=== PATIENT | female | born 1970 | race Caucasian/White ===

== ENCOUNTER → 2018-05-23 10:14 | Outpatient (CLI) | payer OTHER, SELFPAY ==
[2018-05-23 11:39] LABS: Add Manual Diff / Slide Review NO; Basophils Percent Auto 0.5 % (0-2); Eosinophils Percent Auto 3.4 % (2-4); Hematocrit 47.8 % (36-46); Hemoglobin 16.3 g/dL (12.0-16.0); Lymphocytes Percent Auto 22.3 % (25-40); Mean Corpuscular HGB Conc 34.1 % (30-36); Mean Corpuscular Hemoglobin 32.1 PG (26-34); Monocytes Percent Auto 7.3 % (3-14); Neutrophils Absolute Auto 4700 /uL (3000-5900); Neutrophils Percent Auto 66.5 % (50-75); Platelet Count 292 X10^3/uL (150-400); Red Blood Cell Count 5.08 X10^6/uL (4.0-5.2); Red Cell Distribution Width 14.4 % (11.6-14.8); White Blood Cell Count 7.1 X10^3/uL (4.5-11.0)
[2018-05-23 11:41] LABS: HEMOLYSIS < 15 (0-50); Iron 48 ug/dL (37-170)
[2018-05-23 11:44] LABS: Alanine Aminotransferase 63 IU/L (9-52); Albumin 4.1 g/dL (3.5-5.0); Albumin Globulin Ratio 1.2 (1.0-2.8); Alkaline Phosphatase 87 U/L (38-126); Aspartate Aminotransferase 56 IU/L (14-36); BUN Creatinine Ratio 12.9 (6-22); Bilirubin Total 0.6 mg/dL (0.2-1.3); Blood Urea Nitrogen 9 mg/dL (7-17); Calcium 9.2 mg/dL (8.4-10.2); Carbon Dioxide 26 mmol/L (22-32); Chloride 104 mmol/L (98-107); Cholesterol 168 mg/dL (140-199); Estimated Glomerular Filt Rate > 60.0 mL/min (>60); Globulin 3.4 g/dL (1.7-4.1); Glucose 116 mg/dL (70-100); HDL Cholesterol 45 mg/dL (40-60); HEMOLYSIS < 15 (0-50); LDL Cholesterol Calculated 96 mg/dL (<100); Potassium 4.4 mmol/L (3.4-5.1); Sodium 141 mmol/L (137-145); Total Protein 7.5 g/dL (6.3-8.2); Triglycerides 133 mg/dL (35-150)
[2018-05-23 11:51] LABS: Percent Iron Saturation 15 % (15-50); Total Iron Binding Capacity 317 ug/dL (265-497)
[2018-05-23 11:53] LABS: Transferrin 252 mg/dL (206-381)
[2018-05-23 11:59] LABS: Free T3, Triiodothyronine Free 3.39 pg/mL (2.77-5.27); T4 Total Thyroxine 5.97 ug/dL (5.5-11.0); T7 (Free Thyroxine Index) 2.14 (1.65-3.89); Triiodothryronine T3 Uptake 35.9 % (23.5-40.5)
== END ==
PROVIDERS: Visit Provider Family Medicine Sports Medicine
DX: D64.9 Anemia, unspecified (principal); Z13.220 Encounter for screening for lipoid disorders
CPT/HCPCS: 36415; 80053; 80061; 83540; 83550; 84436; 84443; 84479; 84481; 85025